=== PATIENT | male | born 1985 | race Caucasian/White ===

== ENCOUNTER 2021-06-08 10:01 | Emergency (ER) | payer SELFPAY ==
[2021-06-08 10:11] VITALS: BP 129/76; PULSE 119; RESP 20; TEMP 37.4; O2SAT 96; BMI 32.3
[2021-06-08 10:15] VITALS: BP 151/92; PULSE 116; RESP 18; TEMP 37.9; O2SAT 92
--- NOTE | 2021-06-08 10:21 | ECG_ITS ---
[facility] Test Date: 2021-06-08 Pat Name: Bolivar Christiansen Department: Room: Gender: Male Emergency Medicine Physician Assistant: : 1985 Requested By: Wilfredo Dave Order Number: [id number] Post MD: Nargis Orr M.D. Measurements Intervals [place] Rate: 116 P: SC: QRS: 52 QRSD: 83 T: 44 QT: 302 QTc: 420 Interpretive Statements SINUS TACHYCARDIA NONSPECIFIC T-WAVE ABNORMALITY No previous ECG available for comparison Electronically Signed On 06-08-2021 16:10:45 [employer] by Nargis Orr M.D. [id number]
--- NOTE | 2021-06-08 10:21 | XRR_ITS ---
PROCEDURE INFORMATION: Exam: XR Chest Exam date and time: 06/08/2021 10:21 AM Age: 36 years old Clinical indication: Cough TECHNIQUE: Imaging protocol: XR of the chest. Views: 1 view. COMPARISON: No relevant prior studies available. FINDINGS: Lungs: No focal airspace disease. Pleural spaces: Unremarkable. No pleural effusion. No pneumothorax. Heart/Mediastinum: Cardiomediastinal silhouette is within normal limits. Bones/joints: Unremarkable. XR/XR chest 1V portable [id number] IMPRESSION: No acute cardiopulmonary abnormality.
--- NOTE | 2021-06-08 10:29 | W.ED.COVID ---
Documented by User: MELANY Leyva 06/09/21 08:29 HPI - COVID General: Chief Complaint: Shortness of Breath/Dyspnea Stated Complaint: SOB, cough Time Seen by Provider: 06/08/21 10:08 Triage information: Has fever, cough or shortness of breath. No known COVID + exposure last 14 days History of Present Illness: Patient is a 36-year-old male comes to the ED with Covid symptoms. Symptoms started approximately 2 days ago. He has received the COVID-19 vaccine. He reports having cough, shortness of breath, fever, body aches, chills, nasal drainage and congestion. He reports his cough is being productive with a yellow sputum. Denies any abdominal pain, chest pain, bladder or bowel symptoms. COVID 19 common symptoms: positive fever(s), chills, productive cough, dyspnea, body aches and nasal congestion; negative non-productive cough, fatigue, headache(s), throat pain, nausea, vomiting or diarrhea COVID 19 other sytmptoms: negative chest pain COVID Results: SARS-CoV-2 (PCR) Not detected (NOT DETECT) 06/08/21 11:14 06/08/21 Coronavirus Type 229E (PCR) Not detected (NOT DETECT) 06/08/21 11:14 06/08/21 Review of Systems Const: Reports: fever(s), chills and body aches; Denies: fatigue Eyes: Denies: change in vision or eye discomfort ENMT: Reports: nasal discharge and nasal congestion; Denies: throat pain or odynophagia Card: Denies: chest pain, palpitations, edema, swelling of feet/ankles, dyspnea on exertion or orthopnea Resp: Reports: dyspnea, productive cough and change in phlegm color (yellow sputum); Denies: non-productive cough GI: Denies: abdominal pain, nausea, vomiting, diarrhea, constipation or hematochezia : Denies: flank pain, difficulty urinating, dysuria or hematuria Musc: Denies: neck pain, back pain or extremity swelling Skin/Breast: Denies: rash or new lesions Neuro: Denies: headache(s), numbness in extremities or weakness in extremities PFS ED PFSH: Medical History No pertinent family history Surgical History No pertinent past surgical history Physical Exam Const: COMMON NORMALS: no acute distress, patient oriented x3 and alert GENERAL APPEARANCE: cooperative and comfortable HENMT: COMMON NORMALS: normocephalic HEAD & SCALP: normocephalic MOUTH: Normal oral and palatal mucosa present THROAT: posterior oropharynx normal and uvula midline Neck/C-Spine: COMMON NORMALS: supple GENERAL: Yes normal visual inspection Resp: COMMON NORMALS: normal respiratory effort, No retractions and No use of accessory muscles EFFORT & INSPECTION: Yes able to speak in complete sentences and Yes Actively coughing productive AUSCULTATION: wheezes expiratory wheezes (Mild wheezing throughout) and throughout Cardio: COMMON NORMALS: regular rate, regular rhythm, S1 normal heart sound present, S2 normal heart sound present, No gallops present (Cardio), No clicks present (Cardio), No murmurs present (Cardio) and Peripheral pulses 2+ throughout RATE: regular rate RHYTHM: regular rhythm HEART SOUNDS: S1 normal heart sound present and S2 normal heart sound present PERIPHERAL PULSES: Peripheral pulses 2+ throughout GI: COMMON NORMALS: Normal to inspection, nondistended, normoactive bowel sounds present, Soft to palpation, non-tender and no masses PALPATION: Yes Soft to palpation : COMMON NORMALS: Yes no CVA tenderness BLADDER/KIDNEY EXAM: Yes no CVA tenderness Back/Pelvis: COMMON NORMALS: no CVA tenderness Extremity: COMMON NORMALS: normal to inspection and no pedal edema Neuro: COMMON NORMALS: patient oriented x3 and moves all extremities SENSORIUM/ORIENTATION: Yes alert Skin: GENERAL SKIN EXAM: dry skin Course Vital Signs: Vital signs: Vital Signs Temperature 100.2 F H 06/08/21 10:15 Pulse Rate 110 H 06/08/21 15:17 Respiratory Rate 18 06/08/21 15:17 Blood Pressure 128/69 06/08/21 15:17 Pulse Oximetry 90 06/08/21 15:17 I went in and saw patient to tell him about CTA of chest results. At that time his pulse ox is around 96 to 97% on room air. His heart rate was down around 100-105 bpm. He was stable for discharge home MDM - COVID Medical Decision Making Patient is a 36-year-old male who comes to the ED with Covid symptoms. He has got a cough, shortness of breath, fever with chills, body aches. Patient had a temperature of 100.2 and was a little tachycardic at 119 bpm. Patient had some mild wheezing throughout his lungs. Rest of exam is benign. CBC, BMP were unremarkable. Covid negative. Influenza a positive. D-dimer elevated at 1.92. Chest x-ray showed no acute findings. EKG showed sinus tachycardia. CT of chest showed no PE. patient was given DuoNeb breathing treatment, Tylenol and Solu-Medrol here in the ED. I went in and saw patient to tell him about CTA of chest results. At that time his pulse ox is around 96 to 97% on room air. His heart rate was down around 100-105 bpm. He was stable for discharge home. He was sent home with a prescription for albuterol inhaler, Tessalon Perles, Z-Cory and prednisone. Follow-up with PCP in 5 to 7 days for reevaluation. Return to ED precautions given. Patient rested and agreed with plan. Lab Data I reviewed the patient's lab results. : 06/08/21 11:14 06/08/21 11:14 Radiology Impressions Chest X-Ray 06/08/21 10:21 IMPRESSION: No acute cardiopulmonary abnormality. Chest CTA 06/08/21 12:45 IMPRESSION: 1. Suboptimal opacification of the pulmonary arteries. Centrally no pulmonary embolism. 2. No pneumonia. Laboratory Results WBC 6.3 10^3/uL (4.0-10.0) 06/08/21 11:14 RBC 5.55 10^6/uL (4.1-5.3) H 06/08/21 11:14 Hgb 15.8 g/dL (11.7-16.6) 06/08/21 11:14 Hct 46.5 % (42.0-52.0) 06/08/21 11:14 MCV 83.8 fl (80-94) 06/08/21 11:14 MCH 28.5 pg (28.0-34.0) 06/08/21 11:14 MCHC 34.0 g/dL (30.0-36.0) 06/08/21 11:14 RDW 13.6 % (12.1-15.1) 06/08/21 11:14 Plt Count 253 10^3/cmm (130-400) 06/08/21 11:14 MPV 11.0 fL (7.4-10.4) H 06/08/21 11:14 Neut % (Auto) 81.1 % 06/08/21 11:14 Lymph % (Auto) 10.1 % 06/08/21 11:14 [place] % (Auto) 7.5 % 06/08/21 11:14 Eos % (Auto) 0.0 % 06/08/21 11:14 Baso % (Auto) 0.8 % 06/08/21 11:14 Neut # (Auto) 5.08 10^3/uL (1.8-7.7) 06/08/21 11:14 Lymph # (Auto) 0.6 10^3/uL (0.8-4.8) L 06/08/21 11:14 [place] # (Auto) 0.5 10^3/uL (0.2-0.9) 06/08/21 11:14 Eos # (Auto) 0.0 10^3/uL (0.0-0.8) 06/08/21 11:14 Baso # (Auto) 0.1 10^3/uL (0.0-0.1) 06/08/21 11:14 Nucleated RBC % (auto) 0 % 06/08/21 11:14 Nucleated RBCs # 0.0 /100WBC 06/08/21 11:14 D-Dimer 1.92 ug/mIFEU (0-0.59) H 06/08/21 11:14 Sodium 134 mmol/L (136-145) L 06/08/21 11:14 Potassium 3.8 mmol/L (3.5-5.1) 06/08/21 11:14 Chloride 97 mmol/L (98-107) L 06/08/21 11:14 Carbon Dioxide 23 mmol/L (22-29) 06/08/21 11:14 Anion Gap 17.8 (5-19) 06/08/21 11:14 BUN 10 mg/dL (6-20) 06/08/21 11:14 Creatinine 0.8 mg/dL (0.7-1.2) 06/08/21 11:14 GFR Calculation 109.4 mL/min (90-130) 06/08/21 11:14 Glucose 100 mg/dL (65-115) 06/08/21 11:14 Calculated Osmolality 277 mOsm/kg (285-295) L 06/08/21 11:14 Calcium 9.7 mg/dL (8.5-10.5) 06/08/21 11:14 Nasal Influ A H1 2009 PCR Not detected (NOT DETECT) 06/08/21 13:09 Coronavirus 229E (PCR) Not detected (NOT DETECT) 06/08/21 11:14 Influenza A (H1) PCR Not detected (NOT DETECT) 06/08/21 13:09 Influenza A (H3) PCR Detected (NOT DETECT) A 06/08/21 13:09 Influenza Type A Ag Cancelled 06/08/21 11:14 Influenza Type A (PCR) Detected (NOT DETECT) A 06/08/21 13:09 Influenza Type B Ag Cancelled 06/08/21 11:14 Influenza Type B (PCR) Not detected (NOT DETECT) 06/08/21 13:09 SARS-CoV-2 (PCR) Not detected (NOT DETECT) 06/08/21 11:14 SARS-CoV-2 (PCR) Not detected (NOT DETECT) 06/08/21 11:14 06/08/21 Coronavirus Type 229E (PCR) Not detected (NOT DETECT) 06/08/21 11:14 06/08/21 EKG Data EKG 1: EKG interpretation date: 06/08/21 Computer generated interpretation: [address] [address] Electrocardiograph Report Signed Patient: Bolivar Christiansen Unit #: [id number] : 1985 Age/Sex: 36 / M ADM Date: 06/08/21 Loc: ER Room/Bed: Attending Dr: Ordering Provider/Ordering MD: Wilfredo Dave Date of Service: 06/08/21 Procedure(s): ECG 12 lead EKG Accession Number(s): [id number] Report Number: [id number] ? [facility] ? Test Date:? ? 2021-06-08 Pat Name: ? ? Bolivar Christiansen? Department: ? Patient ID: ? [id number] ? Room: ? Gender: ? ? ? Male ? [employer]: ? :? 1985 ? Requested By: Wilfredo Dave Order Number: [id number]? Reading MD: ? Nargis Orr M.D. ? Measurements Intervals? [place]? Rate: ? 116? P:? [place]:? QRS:? 52 QRSD: ? 83 ? T:? 44 QT: ? 302? QTc:? 420? Interpretive Statements SINUS TACHYCARDIA NONSPECIFIC T-WAVE ABNORMALITY No previous ECG available for comparison Electronically Signed On 06-08-2021 16:10:45 PUBLIC [employer]ATIONS STUDIES DIRECTOR by Nargis Orr M.D. [id number] Dictated By: Nargis Orr MD Signed By: Nargis Orr MD Signed Date/Time:06/08/21 1612 DD/ 1058 Discharge Plan Discharge Patient Disposition: Home Clinical Impression: Influenza A, Bronchitis Condition: Stable Prescriptions: New azithromycin 250 mg tablet See Rx Instructions .ROUTE .COMPLEX Qty: 6 0RF Rx Instructions: For 250 mg dose pack: take 500 mg today (day 1), then 250 mg for 4 days (days 2-5) prednisone 20 mg tablet 20 mg PO BID 5 Days Qty: 10 0RF albuterol sulfate 90 mcg/actuation HFA aerosol inhaler 2 inh inhalation Q6H PRN (Reason: shortness of breath or wheezing) Qty: 8.5 0RF benzonatate 100 mg capsule 100 mg PO Q6H PRN (Reason: cough) Qty: 20 0RF Discharge Orders: Discharge ED (Routine); Ordered 06/08/21 Ordered By: Wilfredo Dave Discharge Diet: Regular Discharge Activity: Resume usual activity Patient Instructions: Acute Bronchitis (ED) Activity Restrictions/Additional Instructions: Follow-up with medical provider as directed in 7-10 days. Take medications as prescribed. Return to the ER or your medical provider if condition worsens. Please read and understand discharge instructions. Thank you for choosing [facility] for your healthcare needs today. Please realize this is an emergency room and that we are providing you with a medical screening exam and this may not be complete and all inclusive of all the testing and or work up that you may need to determine your ailment or severity of your illness. It is very important that you follow up as instructed or that you return to the Emergency Department should you have concerns or if your condition changes or worsens in any way. Stand Alone Forms: Work/School Release Coding Level of Care Code ED [employer] for Chg Fwd Exam Comprehensive Documented by User: Jacobo Teresa DO 06/09/21 11:13 HPI - COVID General: Chief Complaint: Shortness of Breath/Dyspnea Stated Complaint: SOB, cough Time Seen by Provider: 06/08/21 10:08 COVID Results: SARS-CoV-2 (PCR) Not detected (NOT DETECT) 06/08/21 11:14 06/08/21 Coronavirus Type 229E (PCR) Not detected (NOT DETECT) 06/08/21 11:14 06/08/21 [facility] ED PFSH: Medical History No pertinent family history Surgical History No pertinent past surgical history Course Vital Signs: Vital signs: Vital Signs Temperature 100.2 F H 06/08/21 10:15 Pulse Rate 110 H 06/08/21 15:17 Respiratory Rate 18 06/08/21 15:17 Blood Pressure 128/69 06/08/21 15:17 Pulse Oximetry 90 06/08/21 15:17 MDM - COVID Medical Decision Making Patient is a 36-year-old male who comes to the ED with Covid symptoms. He has got a cough, shortness of breath, fever with chills, body aches. Patient had a temperature of 100.2 and was a little tachycardic at 119 bpm. Patient had some mild wheezing throughout his lungs. Rest of exam is benign. CBC, BMP were unremarkable. Covid negative. Influenza a positive. D-dimer elevated at 1.92. Chest x-ray showed no acute findings. EKG showed sinus tachycardia. CT of chest showed no PE. patient was given DuoNeb breathing treatment, Tylenol and Solu-Medrol here in the ED. I went in and saw patient to tell him about CTA of chest results. At that time his pulse ox is around 96 to 97% on room air. His heart rate was down around 100-105 bpm. He was stable for discharge home. He was sent home with a prescription for albuterol inhaler, Tessalon Perles, Z-Cory and prednisone. Follow-up with PCP in 5 to 7 days for reevaluation. Return to ED precautions given. Patient rested and agreed with plan. Chart reviewed and patient discussed with midlevel. Agree with assessment and plan. Lab Data : 06/08/21 11:14 06/08/21 11:14 Radiology Impressions Chest X-Ray 06/08/21 10:21 IMPRESSION: No acute cardiopulmonary abnormality. Chest CTA 06/08/21 12:45 IMPRESSION: 1. Suboptimal opacification of the pulmonary arteries. Centrally no pulmonary embolism. 2. No pneumonia. Laboratory Results WBC 6.3 10^3/uL (4.0-10.0) 06/08/21 11:14 RBC 5.55 10^6/uL (4.1-5.3) H 06/08/21 11:14 Hgb 15.8 g/dL (11.7-16.6) 06/08/21 11:14 Hct 46.5 % (42.0-52.0) 06/08/21 11:14 MCV 83.8 fl (80-94) 06/08/21 11:14 MCH 28.5 pg (28.0-34.0) 06/08/21 11:14 MCHC 34.0 g/dL (30.0-36.0) 06/08/21 11:14 RDW 13.6 % (12.1-15.1) 06/08/21 11:14 Plt Count 253 10^3/cmm (130-400) 06/08/21 11:14 MPV 11.0 fL (7.4-10.4) H 06/08/21 11:14 Neut % (Auto) 81.1 % 06/08/21 11:14 Lymph % (Auto) 10.1 % 06/08/21 11:14 [place] % (Auto) 7.5 % 06/08/21 11:14 Eos % (Auto) 0.0 % 06/08/21 11:14 Baso % (Auto) 0.8 % 06/08/21 11:14 Neut # (Auto) 5.08 10^3/uL (1.8-7.7) 06/08/21 11:14 Lymph # (Auto) 0.6 10^3/uL (0.8-4.8) L 06/08/21 11:14 [place] # (Auto) 0.5 10^3/uL (0.2-0.9) 06/08/21 11:14 Eos # (Auto) 0.0 10^3/uL (0.0-0.8) 06/08/21 11:14 Baso # (Auto) 0.1 10^3/uL (0.0-0.1) 06/08/21 11:14 Nucleated RBC % (auto) 0 % 06/08/21 11:14 Nucleated RBCs # 0.0 /100WBC 06/08/21 11:14 D-Dimer 1.92 ug/mIFEU (0-0.59) H 06/08/21 11:14 Sodium 134 mmol/L (136-145) L 06/08/21 11:14 Potassium 3.8 mmol/L (3.5-5.1) 06/08/21 11:14 Chloride 97 mmol/L (98-107) L 06/08/21 11:14 Carbon Dioxide 23 mmol/L (22-29) 06/08/21 11:14 Anion Gap 17.8 (5-19) 06/08/21 11:14 BUN 10 mg/dL (6-20) 06/08/21 11:14 Creatinine 0.8 mg/dL (0.7-1.2) 06/08/21 11:14 GFR Calculation 109.4 mL/min (90-130) 06/08/21 11:14 Glucose 100 mg/dL (65-115) 06/08/21 11:14 Calculated Osmolality 277 mOsm/kg (285-295) L 06/08/21 11:14 Calcium 9.7 mg/dL (8.5-10.5) 06/08/21 11:14 Nasal Influ A H1 2009 PCR Not detected (NOT DETECT) 06/08/21 13:09 Coronavirus 229E (PCR) Not detected (NOT DETECT) 06/08/21 11:14 Influenza A (H1) PCR Not detected (NOT DETECT) 06/08/21 13:09 Influenza A (H3) PCR Detected (NOT DETECT) A 06/08/21 13:09 Influenza Type A Ag Cancelled 06/08/21 11:14 Influenza Type A (PCR) Detected (NOT DETECT) A 06/08/21 13:09 Influenza Type B Ag Cancelled 06/08/21 11:14 Influenza Type B (PCR) Not detected (NOT DETECT) 06/08/21 13:09 SARS-CoV-2 (PCR) Not detected (NOT DETECT) 06/08/21 11:14 SARS-CoV-2 (PCR) Not detected (NOT DETECT) 06/08/21 11:14 06/08/21 Coronavirus Type 229E (PCR) Not detected (NOT DETECT) 06/08/21 11:14 06/08/21 Discharge Plan Discharge Patient Disposition: Home Clinical Impression: Influenza A, Bronchitis Condition: Stable Prescriptions: New azithromycin 250 mg tablet See Rx Instructions .ROUTE .COMPLEX Qty: 6 0RF Rx Instructions: For 250 mg dose pack: take 500 mg today (day 1), then 250 mg for 4 days (days 2-5) prednisone 20 mg tablet 20 mg PO BID 5 Days Qty: 10 0RF albuterol sulfate 90 mcg/actuation HFA aerosol inhaler 2 inh inhalation Q6H PRN (Reason: shortness of breath or wheezing) Qty: 8.5 0RF benzonatate 100 mg capsule 100 mg PO Q6H PRN (Reason: cough) Qty: 20 0RF Discharge Orders: Discharge ED (Routine); Ordered 06/08/21 Ordered By: Wilfredo Dave Discharge Diet: Regular Discharge Activity: Resume usual activity Patient Instructions: Acute Bronchitis (ED) Activity Restrictions/Additional Instructions: Follow-up with medical provider as directed in 7-10 days. Take medications as prescribed. Return to the ER or your medical provider if condition worsens. Please read and understand discharge instructions. Thank you for choosing [facility] for your healthcare needs today. Please realize this is an emergency room and that we are providing you with a medical screening exam and this may not be complete and all inclusive of all the testing and or work up that you may need to determine your ailment or severity of your illness. It is very important that you follow up as instructed or that you return to the Emergency Department should you have concerns or if your condition changes or worsens in any way. Stand Alone Forms: Work/School Release Coding Level of Care Code ED Vp [employer] for [place] Fwd Exam Comprehensive
[2021-06-08] MEDS: ipratropium-albuterol 3 mL Neb 6 ML INHALATION (11:08)
[2021-06-08 11:23] LABS: Basophils # 0.1 10^3/uL (0.0-0.1); Basophils % 0.8 %; Hematocrit 46.5 % (42.0-52.0); Hemoglobin 15.8 g/dL (11.7-16.6); Lymphocytes # 0.6 10^3/uL (0.8-4.8); Lymphocytes % 10.1 %; Mean Corpuscular Hemoglobin 28.5 pg (28.0-34.0); Mean Corpuscular Volume 83.8 fl (80-94); Monocytes # 0.5 10^3/uL (0.2-0.9); Monocytes % 7.5 %; Neutrophils # 5.08 10^3/uL (1.8-7.7); Neutrophils % 81.1 %; Nucleated Red Blood Cells % 0 %; Platelet Count 253 10^3/cmm (130-400); Red Blood Count 5.55 10^6/uL (4.1-5.3); Red Cell Distribution Width 13.6 % (12.1-15.1); White Blood Count 6.3 10^3/uL (4.0-10.0)
[2021-06-08 11:41] LABS: Blood Urea Nitrogen 10 mg/dL (6-20); Calcium 9.7 mg/dL (8.5-10.5); Carbon Dioxide 23 mmol/L (22-29); Chloride 97 mmol/L (98-107); Creatinine Clr Calc Pharmacy 152.7919; Glomerular Filtration Rate 109.4 mL/min (90-130); Glucose 100 mg/dL (65-115); Osmolality Calculated 277 mOsm/kg (285-295); Sodium 134 mmol/L (136-145)
[2021-06-08 11:45] LABS: Anion Gap 17.8 (5-19); Potassium 3.8 mmol/L (3.5-5.1)
[2021-06-08 12:43] LABS: D Dimer 1.92 ug/mIFEU (0-0.59)
--- NOTE | 2021-06-08 12:45 | CT_ITS ---
WS: [id number] CT CHEST ANGIOGRAPHY WITH REFORMATS HISTORY: sob TECHNIQUE: Contiguous axial images are obtained through the chest during arterial injection of intrav enous contrast. Images are reconstructed to evaluate the pulmonary arteries. MIP imaging also reviewe d. All CT scans at [facility] use at least one of these dose optimization techniques: automat ed exposure control; mA and/or kV adjustment per patient size (includes targeted exams where dose is matched to clinical indication); or iterative reconstruction. CONTRAST: Omnipaque 350; 95 mL IV. DLP: 560.21 mGy.cm COMPARISON: None available. Poor opacification of the pulmonary arteries. No large central pulmonary emboli. Opacification become s limited into the lobar branches. Normal thoracic aorta. Normal size heart. No emboli. No pericardia l pleural effusion. No pneumonia or pulmonary mass or nodule. Small hiatal hernia. Visualized liver is normal. No adrenal mass. CT/CT angio chest PE protcl [id number] IMPRESSION: 1. Suboptimal opacification of the pulmonary arteries. Centrally no pulmonary embolism. 2. No pneumonia.
[2021-06-08] MEDS: acetaminophen 500 mg Tablet 1000 MG PO (13:06)
[2021-06-08 13:07] LABS: Adenovirus Not Detected (NOT DETECT); Chlamydia Pneumoniae Not Detected (NOT DETECT); Coronavirus 229E,HKU1,NL63,OC4 Not Detected (NOT DETECT); Human Metapneumovirus Not Detected (NOT DETECT); Human Rhinovirus/Enterovirus Not Detected (NOT DETECT); Influenza A Detected (NOT DETECT); Influenza A H1 Not Detected (NOT DETECT); Influenza A H1-2009 Not Detected (NOT DETECT); Influenza A H3 Detected (NOT DETECT); Influenza B Not Detected (NOT DETECT); Mycoplasma Pneumoniae Not Detected (NOT DETECT); Parainfluenza Virus Type 1 Not Detected (NOT DETECT); Parainfluenza Virus Type 2 Not Detected (NOT DETECT); Parainfluenza Virus Type 3 Not Detected (NOT DETECT); Parainfluenza Virus Type 4 Not Detected (NOT DETECT); Respiratory Syncytial Virus A Not Detected (NOT DETECT); Respiratory Syncytial Virus B Not Detected (NOT DETECT); SARS-COV-2 Not Detected (NOT DETECT)
[2021-06-08 13:10] LABS: Influenza A Detected (NOT DETECT); Influenza A H1 Not Detected (NOT DETECT); Influenza A H1-2009 Not Detected (NOT DETECT); Influenza A H3 Detected (NOT DETECT); Influenza B Not Detected (NOT DETECT); Results from Genmark
[2021-06-08] MEDS: iohexol 350 mg/mL 100 mL Btl IV (13:49)
[2021-06-08 15:17] VITALS: BP 128/69; PULSE 110; RESP 18; O2SAT 90
== END 2021-06-08 15:18 | disposition home or self-care (01) ==
PROVIDERS: Emergency Provider Physician Assistant
DX: J10.1 Influenza due to other identified influenza virus with other respiratory manifestations (principal); J40 Bronchitis, not specified as acute or chronic; Z20.822 Contact with and (suspected) exposure to COVID-19
CPT/HCPCS: 71045; 71275; 80048; 85025; 85378; 87631; 87635; 93005; 94640; 96374; 99284; J2930; Q9967

== ENCOUNTER 2022-03-30 20:36 | Emergency (ER) | payer OTHER, SELFPAY ==
[2022-03-30 21:56] VITALS: BP 133/96; PULSE 88; RESP 18; TEMP 36.8; O2SAT 94; BMI 28.7
[2022-03-30] MEDS: sodium chloride 0.9% 1,000 ML 999 ML IV (22:04)
[2022-03-30] MEDS: ondansetron 2 mg/ML SDV 2 mL 4 MG IVP (22:16)
--- NOTE | 2022-03-30 22:17 | ED_ITS ---
HPI - Nausea/Vomiting/Diarrhea General: Chief complaint: Nausea/Vomiting/Diarrhea Stated complaint: n/v/d Time Seen by Provider: 03/30/22 22:06 Source: patient Mode of arrival: ambulatory Limitations: no limitations History of Present Illness: 37-year-old male states he had a low-grade fever last night states he woke up this morning had abdominal cramping states he had 1 episode of diarrhea and one episode of vomiting. He states that he has had no abdominal pain this evening no more vomiting or diarrhea he states he has felt fatigued. Denies any worsening proving factors. Associated nausea: Yes Associated symtoms: Reports fatigue and nausea; Denies chest pain, dysuria or headache(s) Review of Systems Const: Reports: fatigue Eyes: Denies: blurry vision or eye discomfort ENMT: Denies: throat pain or dental pain Card: Denies: chest pain Resp: Denies: dyspnea GI: Reports: nausea, vomiting and diarrhea : Denies: dysuria Musc: Denies: neck pain or back pain Skin/Breast: Denies: rash Neuro: Denies: headache(s) Psych: Denies: depression [place]/Lymph: Denies: easy bruising All/Imm: Denies: urticaria PFSH ED PFSH: Medical History No pertinent family history Surgical History No pertinent past surgical history Social History (Updated 03/30/22 @ 22:18 by Leandro Daniels MD) Substance/Drug Use: never Physical Exam Const: COMMON NORMALS: no acute distress, patient oriented x3 and healthy appearing HENMT: COMMON NORMALS: normocephalic and atraumatic HEAD & SCALP: normocephalic and atraumatic Eye: COMMON NORMALS: Equal, round and reactive pupils present and EOMs intact bilaterally PUPIL: Yes Equal, round and reactive pupils present Neck/C-Spine: COMMON NORMALS: full ROM and supple Chest: COMMONS NORMALS: normal inspection of the chest and normal palpation of entire chest wall Resp: COMMON NORMALS: normal respiratory effort, No retractions, No use of accessory muscles and clear to auscultation bilaterally AUSCULTATION: clear to auscultation bilaterally Cardio: COMMON NORMALS: regular rate, regular rhythm and No murmurs present (Cardio) RATE: regular rate RHYTHM: regular rhythm GI: COMMON NORMALS: Normal to inspection, nondistended, normoactive bowel so unds present, Soft to palpation, non-tender and no masses PALPATION: Yes Soft to palpation Extremity: COMMON NORMALS: normal to inspection and full ROM Neuro: COMMON NORMALS: patient oriented x3, moves all extremities and no focal motor deficits Psych: COMMON NORMALS: mental status grossly normal, Normal thought process present and cooperative THOUGHT PROCESS: Normal thought process present Skin: COMMON NORMALS: no rashes or lesions noted and no wounds GENERAL SKIN EXAM: no rashes or lesions noted Course Vital Signs: Vital signs: Vital Signs Temperature 98.3 F 03/30/22 21:56 Pulse Rate 88 03/30/22 21:56 Respiratory Rate 18 03/30/22 21:56 Blood Pressure 133/96 03/30/22 21:56 Pulse Oximetry 94 03/30/22 21:56 Oxygen Delivery Me thod 03/30/22 21:56 MDM - Nausea/Vomiting/Diarrhea Medical Decision Making Patient presents with vomiting with likely viral syndrome he is well-appearing here blood work is normal he is stable for discharge she is to follow-up with PCP and return if worsening. Lab Data 03/30/22 22:12 03/30/22 22:12 Laboratory Results WBC 9.2 10^3/uL (4.0-10.0) 03/30/22 22:12 RBC 5.70 10^6/uL (4.1-5.3) H 03/30/22 22:12 Hgb 16.2 g/dL (11.7-16.6) 03/30/22 22:12 Hct 48.1 % (42.0-52.0) 03/30/22 22:12 MCV 84.4 fl (80-94) 03/30/22 22:12 MCH 28.4 pg (28.0-34.0) 03/30/22 22:12 MCHC 33.7 g/dL (30.0-36.0) 03/30/22 22:12 RDW 13.0 % (12.1-15.1) 03/30/22 22:12 Plt Count 311 10^3/cmm (130-400) 03/30/22 22:12 MPV 11.3 fL (7.4-10.4) H 03/30/22 22:12 Neut % (Auto) 65.2 % 03/30/22 22:12 Lymph % (Auto) 22.1 % 03/30/22 22:12 [place] % (Auto) 8.6 % 03/30/22 22:12 Eos % (Auto) 3.4 % 03/30/22 22:12 Baso % (Auto) 0.4 % 03/30/22 22:12 Neut # (Auto) 6.00 10^3/uL (1.8-7.7) 03/30/22 22:12 Lymph # (Auto) 2.0 10^3/uL (0.8-4.8) 03/30/22 22:12 [place] # (Auto) 0.8 10^3/uL (0.2-0.9) 03/30/22 22:12 Eos # (Auto) 0.3 10^3/uL (0.0-0.8) 03/30/22 22:12 Baso # (Auto) 0.0 10^3/uL (0.0-0.1) 03/30/22 22:12 Nucleated RBC % (auto) 0 % 03/30/22 22:12 Nucleated RBCs # 0.0 /100WBC 03/30/22 22:12 Sodium 134 mmol/L (136-145) L 03/30/22 22:12 Potassium 3.7 mmol/L (3.5-5.1) 03/30/22 22:12 Chloride 99 mmol/L (98-107) 03/30/22 22:12 Carbon Dioxide 23 mmol/L (22-29) 03/30/22 22:12 Anion Gap 15.7 (5-19) 03/30/22 22:12 BUN 13 mg/dL (6-20) 03/30/22 22:12 Creatinine 0.8 mg/dL (0.7-1.2) 03/30/22 22:12 GFR Calculation 108.8 mL/min (90-130) 03/30/22 22:12 Glucose 99 mg/dL (65-115) 03/30/22 22:12 Calculated Osmolality 278 mOsm/kg (285-295) L 03/30/22 22:12 Calcium 9.1 mg/dL (8.5-10.5) 03/30/22 22:12 Total Bilirubin 0.6 mg/dL (0.15-1.2) 03/30/22 22:12 AST 25 U/L (0-40) 03/30/22 22:12 ALT 33 U/L (0-41) 03/30/22 22:12 Alkaline Phosphatase 96 U/L (40-130) 03/30/22 22:12 Total Protein 7.8 g/dL (6.6-8.7) 03/30/22 22:12 Albumin 4.3 g/dL (3.5-5.2) 03/30/22 22:12 Globulin 3.5 g/dL (1.3-4.6) 03/30/22 22:12 Lipase 54 U/L (13-60) 03/30/22 22:12 Influenza Type A Ag negative (Negative) 03/30/22 22:12 Influenza Type B Ag negative (Negative) 03/30/22 22:12 Discharge Plan Discharge Patient Disposition: Home Clinical Impression: Vomiting Prescriptions: New ondansetron 4 mg tablet,disintegrating 4 mg PO Q6H PRN (Reason: nausea and vomiting) Qty: 14 0RF No Action azithromycin 250 mg tablet See Rx Instructions .ROUTE .COMPLEX Qty: 6 0RF Rx Instructions: For 250 mg dose pack: take 500 mg today (day 1), then 250 mg for 4 days (days 2-5) albuterol sulfate 90 mcg/actuation HFA aerosol inhaler 2 inh inhalation Q6H PRN (Reason: shortness of breath or wheezing) Qty: 8.5 0RF benzonatate 100 mg capsule 100 mg PO Q6H PRN (Reason: cough) Qty: 20 0RF Discharge Orders: Discharge ED (Routine); Ordered 03/30/22 Ordered By: Leandro Daniels Discharge Diet: Advance as tolerated Discharge Activity: Resume usual activity Patient Instructions: Acute Nausea and Vomiting (ED) Stand Alone Forms: Work/School Release Coding Level of Care Code ED [employer] Fwd Exam Comprehensive
[2022-03-30 22:19] LABS: Basophils % 0.4 %; Eosinophils # 0.3 10^3/uL (0.0-0.8); Eosinophils % 3.4 %; Hematocrit 48.1 % (42.0-52.0); Hemoglobin 16.2 g/dL (11.7-16.6); Lymphocytes % 22.1 %; Mean Corpuscular HGB Conc 33.7 g/dL (30.0-36.0); Mean Corpuscular Hemoglobin 28.4 pg (28.0-34.0); Mean Corpuscular Volume 84.4 fl (80-94); Mean Platelet Volume 11.3 fL (7.4-10.4); Monocytes # 0.8 10^3/uL (0.2-0.9); Monocytes % 8.6 %; Neutrophils % 65.2 %; Nucleated Red Blood Cells % 0 %; Platelet Count 311 10^3/cmm (130-400); White Blood Count 9.2 10^3/uL (4.0-10.0)
[2022-03-30 22:36] LABS: Influenza A by IFA negative (Negative); Influenza B by IFA negative (Negative)
[2022-03-30 22:39] LABS: Alanine Aminotransferase 33 U/L (0-41); Albumin Level 4.3 g/dL (3.5-5.2); Alkaline Phosphatase 96 U/L (40-130); Aspartate Amino Transferase 25 U/L (0-40); Blood Urea Nitrogen 13 mg/dL (6-20); Calcium 9.1 mg/dL (8.5-10.5); Carbon Dioxide 23 mmol/L (22-29); Chloride 99 mmol/L (98-107); Creatinine Clr Calc Pharmacy 143.2115; Globulin 3.5 g/dL (1.3-4.6); Glomerular Filtration Rate 108.8 mL/min (90-130); Glucose 99 mg/dL (65-115); Lipase 54 U/L (13-60); Osmolality Calculated 278 mOsm/kg (285-295); Sodium 134 mmol/L (136-145); Total Bilirubin 0.6 mg/dL (0.15-1.2); Total Protein 7.8 g/dL (6.6-8.7)
[2022-03-30 22:40] LABS: Anion Gap 15.7 (5-19); Potassium 3.7 mmol/L (3.5-5.1)
[2022-03-30 22:49] VITALS: BP 133/96; PULSE 81; RESP 16; O2SAT 100
== END 2022-03-30 22:50 | disposition home or self-care (01) ==
PROVIDERS: Emergency Provider Emergency Medicine
DX: R11.11 Vomiting without nausea (principal)
CPT/HCPCS: 80053; 83690; 85025; 87804; 96361; 96374; 99284; J2405; J7030